=== PATIENT | female | born 1965 | race Caucasian/White ===

== ENCOUNTER 2016-04-22 04:51 | Emergency (ER) | payer OTHER ==
[~2016-04-22] VITALS: Ht 162.6 cm; Wt 71.0 kg
[2016-04-22 04:57] VITALS: Ht 162.6 cm; Wt 71.0 kg
[2016-04-22 06:42] LABS: URINE BLOOD (Dip) POC 2+ (NEGATIVE)
[2016-04-22] MEDS ORDERED: NITR-58 PO (06:56)
[2016-04-22] MEDS ORDERED: AZITHROMYCIN 250 MG TAB PO ONE (07:00)
[2016-04-22] MEDS ORDERED: CEFTRIAXONE 250 MG INJ IM ONE (07:00)
--- NOTE | 2016-04-22 07:04 | ERD ---
ER Documentation Chief Complaint Date/Time DATE: 04/22/16 TIME: 06:59 Chief Complaint painful urination and possible tampon stuck for 2 days medical clearance HPI 51 year old female comes with the police officers were concerned that there may have been a tampons from 3 days ago when her menses ended. She states that she had "rough sex" with her boyfriend painful urination and pelvic pain for 2 days. Patient was concerned that there may have been a tampon from 3 days ago and her menses ended. She states that she had "rough sex" with her boyfriend that caused abrasion on the outside, and she also has noted a lot of white discharge vaginally. She denies fevers chills. ROS All systems reviewed and are negative except as per history of present illness. Medications Home Meds Active Scripts Nitrofurantoin Monohyd Macrocr* (Macrobid*) 100 Mg Capsr, 100 MG PO BID for 7 Days, CAP Prov:JENIFER STOVALL PA-C 04/22/16 Allergies Allergies: Coded Allergies: No Known Allergy (Unverified , 04/22/16) PMhx/Soc Medical and Surgical Hx: pt denies Medical Hx History of Surgery: Yes (COSMETIC ON FEET AND EYES) Hx Alcohol Use: Yes (SOCIALLY) Hx Tobacco Use: Yes (3-4 CIGARETTES PER DAY) Smoking Status: Current every day smoker Physical Exam Vitals Vital Signs Date Time Temp Pulse Resp B/P Pulse Ox O2 Delivery O2 Flow Rate FiO2 04/22/16 04:57 97.8 84 18 160/100 99 Physical Exam General: [Well-developed, well-nourished. The patient appears in no acute distress.] HEENT: [Head is normocephalic, atraumatic. No scleral icterus. Neck: [Supple. Nontender.] Lungs: [Clear to auscultation. Normal air movement.] Heart: [Regular rate and rhythm. S1 and S2 are normal. No murmurs, gallops, or rubs.] Abdomen: [Soft, nontender, nondistended. Bowel sounds are normoactive.] : No foreign body, white vaginal discharge, foul odor. Abrasion to the outside bilaterally. Extremities: [No clubbing or cyanosis. Normal pulses. Moving extremities x 4. No weakness.] Neurologic: [Alert and oriented 3. No focal deficits.] Skin: [Normal turgor. No rash or lesions.] Results 24 hrs Laboratory Tests Test 04/22/16 06:42 Bedside Urine Blood 2+ Bedside Urine Glucose (UA) Negative Bedside Urine Ketones (LAB) 1+ Bedside Urine Leukocyte Esterase (L 2+ Bedside Urine Nitrite (LAB) Positive Bedside Urine Protein (LAB) 2+ Bedside Urine pH (LAB) 5.5 Current Medications Medications (Trade) Dose Ordered Sig/Lala Route PRN Reason Start Time Stop Time Status Last Admin Dose Admin Azithromycin (Zithromax) 1,000 mg ONCE ONCE PO 04/22/16 07:00 04/22/16 07:01 Ceftriaxone Sodium (Rocephin) 250 mg ONCE ONCE IM 04/22/16 07:00 04/22/16 07:01 Procedures/MDM ED course: Patient was given Rocephin 250 mg IM, Zithromax 1 g by mouth. MDM: 51-year-old female comes in with pelvic pain, painful urination. Patient was sheeted presumptively for pelvic inflammatory disease given her pain on exam , DIP discharge. Her urine was also positive for infection, including leukocytes and nitrites. There was no evidence of tampon or foreign body on examination. Other differentials include ovarian torsion, , pyelonephritis, TOA. Departure Diagnosis: Primary Impression: Cervicitis Condition: Good Patient Instructions: What Is Pelvic Inflammatory Disease? Additional Instructions: Call your primary care doctor TOMORROW for an appointment during the next 1-2 days.See the doctor sooner or return here if your condition worsens before your appointment time. ok to book JENIFER STOVALL PA-C Apr 22, 2016 07:03
[2016-04-22 07:18] VITALS: BP 130/59; PULSE 94; RESP 18; TEMP 98.2
== END 2016-04-22 07:24 | disposition home or self-care (01) ==
LOC: FTE 04:51
DX: N72 Inflammatory disease of cervix uteri (principal); F17.210 Nicotine dependence, cigarettes, uncomplicated
CPT/HCPCS: 81003; 87591; 96372; 99284; J0696